=== PATIENT | female | born 1930 | race Caucasian/White ===

== ENCOUNTER 2017-06-11 10:18 | Emergency (ER) | payer MEDICARE ==
--- NOTE | ~2017-06-11 | ER ---
PATIENT'S NAME: [facility] AGE: 87 Y [address] ROOM: [place] [address] LOCATION: [facility] ADMIT DATE: 06/11/2017 ER/Outpatient Report DISCHARGE DATE: 06/11/2017 FAMILY PHYSICIAN: Drake Kimbrough MD ATTENDING PHYSICIAN: Santosh Alexander Time of Arrival: 1018 hours. Time of Evaluation: 1037 hours. CHIEF COMPLAINT: Left knee pain. HISTORY OF PRESENT ILLNESS: The patient is an 87-year-old female who presents to the emergency department today with a chief complaint of left knee pain. She reports this started hurting approximately 5 days prior to arrival. She reports it is painful, whenever, she walks. Denies any fevers or chills. No nausea or vomiting. No diarrhea or constipation. She reports no history of previous symptoms. It is a sharp type pain. It is a burning type pain. PAST MEDICAL HISTORY: 1. Hypertension. 2. Dyslipidemia. 3. Degenerative disk disease. PAST SURGICAL HISTORY: Hysterectomy. SOCIAL HISTORY: The patient denies any tobacco, alcohol, or illicit drug use. ALLERGIES: PENICILLIN. MEDICATIONS: Please see list. PRIMARY CARE DOCTOR: Drake Kimbrough MD REVIEW OF SYSTEMS: All systems are reviewed by myself and are negative with the exception of those discussed in the HPI and past medical history. PHYSICAL EXAMINATION: PATIENT'S NAME: SUMANTH [facility] AGE: 87 Y [address] ROOM: [place] [address] LOCATION: [facility] ADMIT DATE: 06/11/2017 ER/Outpatient Report DISCHARGE DATE: 06/11/2017 FAMILY PHYSICIAN: Drake Kimbrough MD ATTENDING PHYSICIAN: Santosh Alexander VITAL SIGNS: Weight 82.9 kg. Blood pressure 156/70, pulse 64, respiratory rate 20, temperature 98.4, and oxygen saturation 96% on room air. GENERAL: The patient is an 87-year-old female, who appears stated age, in no acute distress at this time. HEENT: Head; normocephalic and atraumatic. NECK: Supple. There is no nuchal rigidity. CARDIOVASCULAR: Regular rate and rhythm. LUNGS: Clear to auscultation bilaterally. ABDOMEN: Soft, nontender, and nondistended. No rebound, rigidity, or guarding. MUSCULOSKELETAL: The patient has full range of motion in the left knee. She is neurovascularly intact. 2/4 pulses, DP and PT which are equal bilaterally. SKIN: Warm and dry. There is no erythema over the knee. There is no evidence of swelling noted. LABORATORY DATA AND X-RAYS: Three-view x-ray of the left knee was obtained. It is interpreted by myself, does show evidence of osteoarthritis. No other fractures or dislocations are noted. IMPRESSION: 1. Acute left knee pain. 2. Initial visit. EMERGENCY DEPARTMENT COURSE: The patient was brought back to the examination room. Seen and evaluated by myself. X-rays were obtained as described above. The patient is given Dungannon 5/325, 1 tablet p.o. This has resulted in improvement of the patient's pain. I have discussed results of the imaging with the patient and recommended a close followup with Dr. Bullock. She does report that she has an appointment. I have discussed following up with Dr. Kimbrough, primary care doctor in 2 to 3 days for re-evaluation. I have written a prescription for Dungannon with sedation warning. The patient is agreeable. She is without further questions at this time. DISPOSITION: The patient was discharged to home in good condition. DO AUDRA JARRELL/luis alfredo PATIENT'S NAME: MASHA JULIO I [facility] AGE: 87 Y [address] ROOM: [place], [place] [address] LOCATION: ED ADMIT DATE: 06/11/2017 ER/Outpatient Report DISCHARGE DATE: 06/11/2017 FAMILY PHYSICIAN: Drake Kimbrough MD ATTENDING PHYSICIAN: Santosh Alexander /[id number] d: 06/11/17 1323 t: 06/11/17 1458, OUTPATIENT REPORT
== END 2017-06-11 12:14 | disposition disaster alternative care site (69) ==
LOC: GMED 10:18
DX: M25.562 Pain in left knee (principal); I10 Essential (primary) hypertension; E78.5 Hyperlipidemia, unspecified; Z90.710 Acquired absence of both cervix and uterus; Z88.0 Allergy status to penicillin; Z98.890 Other specified postprocedural states